=== PATIENT | male | born 1990 | race Caucasian/White ===

== ENCOUNTER 2024-01-05 23:26 | Emergency (ER) | payer SELFPAY ==
[~2024-01-05] VITALS: Ht 165.1 cm; Wt 57.0 kg
[2024-01-05 23:31] VITALS: PULSE 88
[2024-01-05 23:41] VITALS: BP 149/101; RESP 20; TEMP 98.3; O2SAT 100
== END 2024-01-06 00:15 | disposition left against medical advice (07) ==
LOC: ER 23:26
DX: R51.9 Headache, unspecified (principal); Z53.21 Procedure and treatment not carried out due to patient leaving prior to being seen by health care provider